=== PATIENT | male | born 1990 | race Native Hawaiian/Other Pacific Islander ===

== ENCOUNTER 2017-06-30 19:58 | Emergency (ER) | payer OTHER ==
[~2017-06-30] VITALS: Ht 172.7 cm; Wt 65.0 kg
[2017-06-30 20:36] VITALS: BP 112/67; PULSE 94; RESP 18; TEMP 98.5; O2SAT 100
--- NOTE | 2017-06-30 21:43 | RADRPT ---
EXAM DATE/TIME: 06/30/2017 21:08 [place] COMPARISON: No previous studies available for comparison. INDICATIONS : Pain from trauma sustained playing soccer where patient was kicked on the medial aspect distal third of the right tibia. MEDICAL HISTORY : None. SURGICAL HISTORY : None. ENCOUNTER: Initial ACUITY: 1 day PAIN SCORE: 8/10 LOCATION: Right tibia FINDINGS: Two view examination of the right tibia demonstrates no evidence of fracture or dislocation. Bony mi neralization is normal. The soft tissue structures are intact. CONCLUSION: No acute disease. Nick Gould MD on June 30, 2017 at 21:42 Board Certified Radiologist. This report was verified electronically.
[2017-06-30] MEDS ORDERED: IBUP1TAB7 PO (21:51)
--- NOTE | 2017-06-30 21:51 | PD ---
HPI Chief Complaint: Injury Time Seen by Provider: 21:39 Travel History International Travel<30 days: No Contact w/Intl Traveler<30days: No Traveled to known affect area: No History of Present Illness HPI 27-year-old male with no significant medical history presents emergency department for evaluation of a painful bump on his right anterior medial distal lower extremity. Patient was playing soccer this evening when he was struck in the leg. He states since then he has had extreme pain. There is tenderness to touch. The area is throbbing. He states it exacerbated by ambulation. Denies any fever chills. Denies any alterations in sensation. No other symptoms to report. PFSH Past Medical History Medical History: Denies Significant Hx Diminished Hearing: No Tetanus Vaccination: Unknown Past Surgical History Surgical History: No Previous Surgery Social History Alcohol Use: No Tobacco Use: No Substance Use: No Allergies-Medications (Allergen,Severity, Reaction): Coded Allergies: No Known Allergies (Unverified , 06/30/17) Reported Meds & Prescriptions Reported Meds & Active Scripts Active Ibuprofen 800 Mg Tab 800 Mg PO Q8H PRN Review of Systems Except as stated in HPI: all other systems reviewed are Neg Physical Exam Narrative GENERAL: Well-nourished, well-developed male patient, ambulatory with an antalgic gait no acute distress. SKIN: Focused skin assessment warm/dry. 7 cm in diameter area of raised ecchymosis on the medial aspect of the right distal lower extremity. No obvious deformities. HEAD: Normocephalic. EYES: No scleral icterus. No injection or drainage. NECK: Supple, trachea midline. No JVD or lymphadenopathy. CARDIOVASCULAR: Regular rate and rhythm without murmurs, gallops, or rubs. RESPIRATORY: Breath sounds equal bilaterally. No accessory muscle use. GASTROINTESTINAL: Abdomen soft, non-tender, nondistended. MUSCULOSKELETAL: No cyanosis, or edema. Distal pulses are palpable. Compartments are all soft of the affected extremity. Cap refill within normal limits. No limitations in range of motion. BACK: Nontender without obvious deformity. No CVA tenderness. Data Data Last Documented VS Vital Signs Date Time Temp Pulse Resp B/P (MAP) Pulse Ox O2 Delivery O2 Flow Rate FiO2 06/30/17 20:36 98.5 94 18 112/67 (82) 100 Orders Orders Ice/Cold Pack (06/30/17 20:39) Tibia/Fibula (Ap/Lat) (06/30/17 20:39) Ibuprofen (Motrin) (06/30/17 22:00) Ed Discharge Order (06/30/17 21:49) [facility] Medical Decision Making Medical Screen Exam Complete: Yes Emergency Medical Condition: Yes Medical Record Reviewed: Yes Differential Diagnosis Contusion versus fracture versus hematoma Narrative Course 27-year-old male presents emergency department for evaluation of painful area on the right distal lower extremity where he was struck while playing soccer this evening. X-ray confirms no acute bony abnormality. The compartments are soft. This is a contusion. Patient is counseled on care, encouraged follow-up with primary care provider and return immediately with acute worsening symptoms. Diagnosis Primary Impression: Contusion of leg, right Qualified Codes: S80.11XA - Contusion of right lower leg, initial encounter Referrals: Primary Care Physician Patient Instructions: Contusion in Adults (ED), General Instructions Additional Instructions: Ice and elevate to reduce pain and swelling Follow-up the primary care provider Return to the emergency department with any acute worsening of symptoms Med/Other Pt SpecificInfo: Prescription(s) given Scripts Ibuprofen (Ibuprofen) 800 Mg Tab 800 MG PO Q8H Y for Pain/Inflammation, #30 TAB 0 Refills Prov: Lolis Odom 06/30/17 Disposition: 01 DISCHARGE HOME Condition: Stable Lolis Odom Jun 30, 2017 21:51
[2017-06-30] MEDS ORDERED: IBUPROFEN 800 MG TAB PO ONE (22:00)
== END 2017-06-30 22:29 | disposition home or self-care (01) ==
LOC: NEPD 19:58
DX: S80.11XA Contusion of right lower leg, initial encounter (principal); W51.XXXA Accidental striking against or bumped into by another person, initial encounter; Y93.66 Activity, soccer
CPT/HCPCS: 73590; 99283